=== PATIENT | female | born 1975 | race Caucasian/White ===

== ENCOUNTER 2017-03-31 13:40 | Inpatient (IN) | payer BC ==
[~2017-03-31] VITALS: Ht 167.6 cm; Wt 112.8 kg
[2017-04-02 21:25] VITALS: BP 172/95
[2017-04-02] MEDS ORDERED: OXYTOCIN 30U/ 0.9% NaCL 500ML 500 ML IV ONE (21:32)
[2017-04-02] MEDS: D5%-LACTATED RINGERS 1,000 ML IV SCH (21:32)
[2017-04-02] MEDS ORDERED: LIDOCAINE 1%, 20ML ONE (21:37)
[2017-04-02] MEDS ORDERED: NEWBORN KIT ONE (21:37)
[2017-04-02] MEDS ORDERED: MISOPROSTOL 25 MCG TABLET ONE (21:37)
[2017-04-02] MEDS ORDERED: MISOPROSTOL 200 MCG TABLET ONE (21:38)
[2017-04-02] MEDS ORDERED: OXYTOCIN 30U/ 0.9% NaCL 500ML 500 ML ONE (21:38)
[2017-04-02] MEDS: PLEASE ENTER HEIGHT AND WEIGHT MC SCH (22:00)
[2017-04-02] MEDS ORDERED: TERBUTALINE 1 MG/ML, 1ML SQ PRN (22:00)
[2017-04-02] MEDS ORDERED: ONDANSETRON 2MG/ML, 2ML IVPush PRN (22:00)
[2017-04-02] MEDS ORDERED: FENTANYL PF 100 MCG/2ML IV PRN (22:00)
[2017-04-02] MEDS ORDERED: CEFAZOLIN PMX 1GM/50ML 50 ML IVPB SCH (22:00)
[2017-04-02] MEDS: PLEASE ENTER ALLERGIES MC SCH ×6 (22:00→23:30)
[2017-04-02] MEDS ORDERED: MISOPROSTOL 25 MCG TABLET VG PRN (22:00)
[2017-04-02] MEDS ORDERED: CALCIUM CARBONATE 500 MG TAB.CHEW PO PRN (22:00)
[2017-04-02] MEDS ORDERED: TERBUTALINE 1 MG/ML, 1ML IVPush PRN ×2 (22:00)
[2017-04-02] MEDS ORDERED: FENTANYL PF 100 MCG/2ML IVPush PRN (22:00)
[2017-04-02] MEDS ORDERED: CEFAZOLIN PMX 2GM/50ML 50 ML IVPB ONE (22:00)
[2017-04-02 22:06] LABS: HEMATOCRIT 37.6 % (34.6-47.8); HEMOGLOBIN 12.9 g/dL (11.7-16.4); WHITE BLOOD COUNT 10.4 x10^3/uL (3.4-10)
[2017-04-02 22:18] LABS: ASPARTATE AMINO TRANSFERASE 15 U/L (15-37); BLOOD UREA NITROGEN 12 mg/dL (7-18)
[2017-04-03] MEDS: PLEASE ENTER ALLERGIES MC SCH ×42 (00:30→18:30)
[2017-04-03] MEDS: LACTATED RINGERS 1,000 ML IV SCH ×4 (04:58→21:32)
[2017-04-03] MEDS: CEFAZOLIN PMX 2GM/50ML 50 ML IV SCH ×4 (05:00→22:54)
[2017-04-03] MEDS: D5%-LACTATED RINGERS 1,000 ML IV SCH ×3 (05:32→21:32)
[2017-04-03] MEDS: PLEASE ENTER HEIGHT AND WEIGHT MC SCH ×2 (06:00→14:00)
[2017-04-03 20:05] VITALS: BP 145/80
[2017-04-04] MEDS ORDERED: OXYTOCIN 30U/ 0.9% NaCL 500ML 500 ML ONE (02:21)
[2017-04-04] MEDS: D5%-LACTATED RINGERS 1,000 ML IV SCH ×3 (02:33→21:32)
[2017-04-04] MEDS: OXYTOCIN 30U/ 0.9% NaCL 500ML 500 ML IV PRN (02:33)
[2017-04-04] MEDS: CEFAZOLIN PMX 2GM/50ML 50 ML IV SCH ×4 (04:57→22:54)
[2017-04-04] MEDS: LACTATED RINGERS 1,000 ML IV SCH ×3 (05:32→19:07)
[2017-04-04 06:05] VITALS: BP 145/88
[2017-04-04] MEDS ORDERED: LABETALOL 5MG/ML, 20ML ONE (09:06)
[2017-04-04] MEDS ORDERED: LABETALOL 5MG/ML, 20ML IVPush ONE ×2 (09:30→19:30)
[2017-04-04] MEDS ORDERED: MAGNESIUM SULF. PMX 20GM/500ML 500 ML IV ONE (17:54)
[2017-04-04] MEDS ORDERED: MAGNESIUM SULFATE PMX 4GM/100M 100 ML IVPB ONE (18:00)
[2017-04-04] MEDS: MAGNESIUM SULF. PMX 20GM/500ML 500 ML IV PRN (18:24)
[2017-04-04] MEDS ORDERED: FENTANYL PF 100 MCG/2ML ONE (18:27)
[2017-04-04] MEDS ORDERED: FENTANYL/BUPIV./NS/PF 250 ML EPIDCONT SCH (19:04)
[2017-04-04] MEDS ORDERED: BUPIVACAINE/PF 0.25% ONE (19:18)
[2017-04-04] MEDS ORDERED: FENTANYL/BUPIV./NS/PF 250 ML EPIDCONT ONE ×2 (19:19→19:25)
[2017-04-04 19:20] LABS: HEMATOCRIT 38.8 % (34.6-47.8); WHITE BLOOD COUNT 22.2 x10^3/uL (3.4-10)
[2017-04-04] MEDS ORDERED: EPHEDRINE 50 MG/ML, 1ML IVPush PRN (19:30)
[2017-04-04] MEDS ORDERED: NALOXONE 0.4 MG/ML, 1ML IVPush PRN (19:30)
[2017-04-04] MEDS ORDERED: LACTATED RINGERS 1,000 ML IVBOLUS PRN (19:30)
[2017-04-04 23:38] LABS: ASPARTATE AMINO TRANSFERASE 22 U/L (15-37); BLOOD UREA NITROGEN 4 mg/dL (7-18)
[2017-04-05] MEDS: LACTATED RINGERS 1,000 ML IV SCH ×8 (00:49→23:15)
[2017-04-05] MEDS ORDERED: MAGNESIUM SULF. PMX 20GM/500ML 500 ML IV ONE ×3 (01:20→19:07)
[2017-04-05] MEDS: MAGNESIUM SULF. PMX 20GM/500ML 500 ML IV PRN ×3 (01:28→19:13)
[2017-04-05] MEDS: OXYTOCIN 30U/ 0.9% NaCL 500ML 500 ML IV PRN (02:40)
[2017-04-05] MEDS: OXYTOCIN 30U/ 0.9% NaCL 500ML 500 ML IV SCH ×5 (03:19→23:19)
[2017-04-05] MEDS ORDERED: METOCLOPRAMIDE 5 MG/ML, 2ML ONE (03:19)
[2017-04-05] MEDS ORDERED: SODIUM CITRATE/CITRIC ACID 30 ML UDC ONE (03:19)
[2017-04-05] MEDS ORDERED: SODIUM CITRATE/CITRIC ACID 30 ML UDC PO ONE (03:30)
[2017-04-05] MEDS ORDERED: METOCLOPRAMIDE 5 MG/ML, 2ML IV ONE (03:30)
[2017-04-05] MEDS: CEFAZOLIN PMX 2GM/50ML 50 ML IV SCH (05:03)
[2017-04-05] MEDS: D5%-LACTATED RINGERS 1,000 ML IV SCH (05:32)
[2017-04-05] MEDS ORDERED: FENTANYL PF 100 MCG/2ML ONE (07:12)
[2017-04-05] MEDS ORDERED: ONDANSETRON 2MG/ML, 2ML ONE (07:12)
[2017-04-05] MEDS ORDERED: CEFAZOLIN 1,000 MG ONE (07:12)
[2017-04-05] MEDS ORDERED: OXYTOCIN 10 UNITS/ML, 1ML ONE (07:12)
[2017-04-05] MEDS ORDERED: HYDROmorphone 2 MG/ML, 1ML ONE (07:12)
[2017-04-05] MEDS ORDERED: LIDOCAINE 2% 100MG/5ML SYRINGE ONE (07:16)
[2017-04-05] MEDS ORDERED: LIDOCAINE-MPF 2% ,5ML ONE (07:25)
[2017-04-05] MEDS ORDERED: SIMETHICONE 80 MG CHEW TAB PO PRN (07:30)
[2017-04-05] MEDS ORDERED: CALCIUM CARBONATE 500 MG TAB.CHEW PO PRN (07:30)
[2017-04-05] MEDS ORDERED: DOCUSATE 100 MG CAPSULE PO PRN (07:30)
[2017-04-05] MEDS ORDERED: MEASLES,MUMPS&RUBELLA VACC/PF 0.5 ML SQ-VACC PRN (07:30)
[2017-04-05] MEDS ORDERED: MISOPROSTOL 200 MCG TABLET PR PRN (07:30)
[2017-04-05] MEDS ORDERED: ONDANSETRON 2MG/ML, 2ML IV PRN (07:30)
[2017-04-05] MEDS ORDERED: morphine SULFATE 10 MG/ML, 1ML IVPush PRN (07:30)
[2017-04-05] MEDS ORDERED: DIPH,PERTUSS(ACELL),TET VAC/PF NC IM-VACC PRN (07:30)
[2017-04-05] MEDS ORDERED: RHOGAM FROM BLOOD BANK 1 NOTE EA IM/IV ONE (07:30)
[2017-04-05] MEDS ORDERED: KETOROLAC 30 MG/1 ML ONE ×3 (08:43→21:25)
[2017-04-05] MEDS: PRENATAL VIT/IRON/FA 1 EACH TABLET PO SCH (09:00)
[2017-04-05] MEDS: KETOROLAC 30 MG/1 ML IV SCH ×3 (09:00→22:07)
[2017-04-05] MEDS ORDERED: HYDROmorphone 1 MG/ML, 1ML ONE (10:02)
[2017-04-05] MEDS: HYDROmorphone 1 MG/ML, 1ML IV PRN ×2 (10:15→10:16)
[2017-04-05] MEDS ORDERED: OXYcodone IR 5MG TABLET ONE ×4 (10:24→23:11)
[2017-04-05] MEDS: OXYcodone IR 5MG TABLET PO PRN ×4 (10:27→23:16)
[2017-04-05 19:39] VITALS: BP 131/72
[2017-04-05 23:26] VITALS: BP 151/70
[2017-04-06] MEDS: LACTATED RINGERS 1,000 ML IV SCH ×2 (03:15→07:15)
[2017-04-06] MEDS: OXYTOCIN 30U/ 0.9% NaCL 500ML 500 ML IV SCH (03:15)
[2017-04-06] MEDS ORDERED: KETOROLAC 30 MG/1 ML ONE (04:02)
[2017-04-06] MEDS ORDERED: MAGNESIUM SULF. PMX 20GM/500ML 500 ML IV ONE (04:02)
[2017-04-06] MEDS: MAGNESIUM SULF. PMX 20GM/500ML 500 ML IV PRN (04:07)
[2017-04-06] MEDS: KETOROLAC 30 MG/1 ML IV SCH ×4 (04:08→16:37)
[2017-04-06] MEDS ORDERED: OXYcodone IR 5MG TABLET ONE (05:05)
[2017-04-06] MEDS: OXYcodone IR 5MG TABLET PO PRN (05:12)
[2017-04-06 08:00] VITALS: BP 141/69
[2017-04-06] MEDS: PRENATAL VIT/IRON/FA 1 EACH TABLET PO SCH (09:00)
[2017-04-06] MEDS: OXYcodone/APAP 5/325MG TABLET PO PRN ×3 (13:51→23:44)
[2017-04-06] MEDS: niFEDipine ER 30 MG TABLET.ER PO SCH (15:49)
[2017-04-06] MEDS: IBUPROFEN 600 MG TABLET PO PRN ×2 (16:45→23:44)
[2017-04-06 20:00] VITALS: BP 154/73
[2017-04-07 00:10] VITALS: BP 149/65
[2017-04-07 07:45] VITALS: BP 144/81
[2017-04-07] MEDS: niFEDipine ER 30 MG TABLET.ER PO SCH (09:51)
[2017-04-07] MEDS ORDERED: DOCU-131 PO (10:44)
[2017-04-07] MEDS ORDERED: IBUP-1223 PO (10:45)
[2017-04-07] MEDS ORDERED: OXYC-302 PO (10:47)
[2017-04-07] MEDS ORDERED: OXYcodone/APAP 5/325MG TABLET PO PRN (11:30)
== END 2017-04-07 14:20 | disposition home or self-care (01) | DRG 765 ==
LOC: LDIP 04-02 21:31 → 2NE 04-05 11:10 → 2NW 04-06 10:03
PROVIDERS: ADMIT Obstetrics & Gynecology Gynecology; ATTEND Obstetrics & Gynecology Gynecology
PROC: 10D00Z1 Extraction of Products of Conception, Low, Open Approach (ICD-10-PCS; principal; 2017-04-04)
DX: O48.0 Post-term pregnancy (principal); Z68.41 Body mass index [BMI] 40.0-44.9, adult; E66.9 Obesity, unspecified; O61.9 Failed induction of labor, unspecified; O14.14 Severe pre-eclampsia complicating childbirth; O99.824 Streptococcus B carrier state complicating childbirth; O69.81X0 Labor and delivery complicated by cord around neck, without compression, not applicable or unspecified; O62.0 Primary inadequate contractions; O99.214 Obesity complicating childbirth; G43.909 Migraine, unspecified, not intractable, without status migrainosus; Z37.0 Single live birth; Z3A.40 40 weeks gestation of pregnancy; Z80.0 Family history of malignant neoplasm of digestive organs; Z82.49 Family history of ischemic heart disease and other diseases of the circulatory system; Z88.0 Allergy status to penicillin; Z88.5 Allergy status to narcotic agent
CPT/HCPCS: 36415; 80053; 81001; 82248; 82570; 82803; 83735; 84156; 84550; 85025; 86850; 86900; J0690; J1170; J1885; J2405; J3010; J3490; J2590; J2765; J3475; J7120; J7121